=== PATIENT | male | born 1955 | race Caucasian/White ===

== ENCOUNTER → 2017-10-19 | Outpatient (CLI) | payer MEDICARE ==
[~2017-10-19] MED LIST: AMIT75TA2 PO; AMLO5TAB2 PO; AMOX-358 PO; ASCO500T20 PO; ASP81TEC PO; ASPI325T32 PO; AVOD0.5CAP PO; C250T PO; DEXL60CA5 PO; DIAZ5TAB3 PO; E400C PO; ENAL20TA PO; FINA5TAB6 PO; METF-380 PO; MULT-608 PO; NAPR-243 PO; NAPR550T PO; NEBI5TAB8 PO; NF-ESOM40C PO; NFNEB10T PO; NIAC400C2 PO; OMG1KC PO; ONDA8TAB9 PO; OXYC-12 PO; OXYC-197 PO; OXYC-309 PO; OXYC-471 PO; SCR1T1 PO; TAPE75TA PO; TIZA4TAB55 PO
--- NOTE | 2017-10-19 17:24 | Diagnostic Imaging Report ---
INDICATION: Persistent cough for four weeks. TIME OF EXAM: 05:29 p.m. Correlation is made with prior study from 08/26/2015. FINDINGS: The heart size is normal. Lungs do show some hyperinflation suggestive of COPD. No infiltrates are seen. There is no effusion or pneumothorax. There are postop changes in the lower cervical spine. IMPRESSION: COPD. No acute feature is detected. Dictated by: Dictated on workstation # [id number]
== END ==
LOC: RAD 17:01
PROVIDERS: ATTEND Family Medicine
DX: J44.9 Chronic obstructive pulmonary disease, unspecified (principal)
CPT/HCPCS: 71046

== ENCOUNTER → 2017-11-15 | Outpatient (CLI) | payer MEDICARE ==
[~2017-11-15] MED LIST changes: +CATHETER FLUSH 10 ML SYR IV PRN; +REGADENOSON 0.4 MG/5 ML SYR (LEXISCAN) IV ONE
[2017-11-15 09:39] VITALS: BP 146/66
--- NOTE | 2017-11-15 18:45 | STRESS TEST ---
DATE OF SERVICE: 11/15/2017 LEXISCAN MYOVIEW STRESS TEST REPORT REFERRING PHYSICIAN: Dr. Frazier. Baseline heart rate is 63. Baseline blood pressure 160/67. Baseline EKG is sinus rhythm with no ischemic changes. In summary, the patient was injected with 10.92 mCi of technetium-99 Myoview and the resting images were obtained. Then, the patient received 0.4 mg of Lexiscan followed by 31.0 mCi of technetium-99 Myoview and the stress images were acquired, the resting and stress images were reviewed and compared in the short axis, horizontal long axis, and vertical long axis views. Review of the images showed diaphragmatic attenuation with fixed defect at the mid to apical inferior wall. No significant reversibility was seen. SSS is 4. SDS 0. TID value 1.03. On the gated images, the left ventricle appeared to be normal size with normal contractility. Calculated ejection fraction 54%. CONCLUSION: 1. The patient tolerated Lexiscan well. 2. Diaphragmatic attenuation with typical male pattern. No significant ischemia or infarction on SPECT images. 3. Normal left ventricular size with normal contractility. Calculated ejection fraction 54%. Job ID: [id number] DocumentID: [id number] Dictated Date: 11/15/2017 16:22:06 Delicatessen Department Manager Date: 11/15/2017 18:44:38 Dictated By: EZEQUIEL CALDERA MD
== END ==
LOC: CARD 07:42
PROVIDERS: ATTEND Physician Assistant
DX: I25.10 Atherosclerotic heart disease of native coronary artery without angina pectoris (principal); I10 Essential (primary) hypertension; R07.9 Chest pain, unspecified; R06.00 Dyspnea, unspecified
CPT/HCPCS: 78452; 93017

== ENCOUNTER → 2017-11-17 | Outpatient (CLI) | payer MEDICARE ==
[~2017-11-17] MED LIST changes: -CATHETER FLUSH 10 ML SYR IV PRN; -REGADENOSON 0.4 MG/5 ML SYR (LEXISCAN) IV ONE; +RT-ALBUTEROL SULF 2.5 MG/3 ML PRE-MIX VIAL INH ONE; +RT-ALBUTEROL SULF 2.5 MG/3 ML PRE-MIX VIAL ONE
== END ==
LOC: RT 12:41
PROVIDERS: ATTEND Nurse Practitioner Family
DX: J44.9 Chronic obstructive pulmonary disease, unspecified (principal); R06.00 Dyspnea, unspecified; R05 Cough
CPT/HCPCS: 94060; 94726; 94729

== ENCOUNTER → 2017-11-25 | Outpatient (CLI) | payer MEDICARE ==
[~2017-11-25] MED LIST changes: -RT-ALBUTEROL SULF 2.5 MG/3 ML PRE-MIX VIAL INH ONE; -RT-ALBUTEROL SULF 2.5 MG/3 ML PRE-MIX VIAL ONE
== END ==
LOC: CARD 11:34
PROVIDERS: ATTEND Physician Assistant
DX: I25.10 Atherosclerotic heart disease of native coronary artery without angina pectoris (principal); R07.89 Other chest pain; R06.00 Dyspnea, unspecified; I10 Essential (primary) hypertension; I34.0 Nonrheumatic mitral (valve) insufficiency
CPT/HCPCS: 93306

== ENCOUNTER → 2018-01-26 | Outpatient (CLI) | payer MEDICARE ==
--- NOTE | 2018-01-26 17:41 | Diagnostic Imaging Report ---
INDICATION: Respiratory distress. PA and lateral chest. FINDINGS: Heart size and pulmonary vascularity are normal. Lungs are clear. There are no effusions or pneumothoraces. IMPRESSION: Negative chest. Dictated by: Dictated on workstation # [id number]
== END ==
LOC: RAD 15:52
PROVIDERS: ATTEND Nurse Practitioner Family
DX: J44.9 Chronic obstructive pulmonary disease, unspecified (principal)
CPT/HCPCS: 71046

== ENCOUNTER → 2018-03-23 | Outpatient (CLI) | payer MEDICARE | LOC: RAD 12:54 | PROVIDERS: ATTEND Family Medicine | DX: M54.41 Lumbago with sciatica, right side (principal); Z53.8 Procedure and treatment not carried out for other reasons ==

== ENCOUNTER 2020-02-12 05:48 | Outpatient (RCR) | payer MEDICARE ==
[~2020-02-12] VITALS: Ht 190 cm; Wt 121.0 kg
[~2020-02-12 05:48] MED LIST changes: +AMLO10TA7 PO; +ASCO500C15 PO; +ATOR10TA66 PO; +CBD OIL PO; +CHOL2000 PO; +ELDE1CAP PO; +HYDR25TA4 PO; +LOSA100T57 PO; +METF-399 PO; +METO100T12 PO; +MONT10TA26 PO; +MULT-1136 PO; +NAPR-1070 PO; +OMEG1000 PO; -OXYC-197 PO; +OXYC1TAB87 PO; +TIZA4CAP8 PO
== END 2020-02-12 15:14 | disposition home or self-care (01) ==
LOC: PREOP 05:48
PROVIDERS: ATTEND Surgery
DX: Z01.818 Encounter for other preprocedural examination (principal); Z11.59 Encounter for screening for other viral diseases
CPT/HCPCS: 87635

== ENCOUNTER 2020-02-16 09:03 | Day surgery (SDC) | payer MEDICARE ==
[~2020-02-16] VITALS: Ht 190 cm; Wt 121.0 kg
[2020-02-16] VITALS (14 sets, daily range): BP systolic 100–143; BP diastolic 55–77
[2020-02-16] MEDS ORDERED: NS IV 500 ML 500 ML ONE (09:13)
[2020-02-16] MEDS ORDERED: HURRICAINE EXT TUBE (BENZOCAINE) XX PRN (09:15)
[2020-02-16] MEDS ORDERED: LIDOCAINE JELLY 2% 6 ML SYRINGE MM PRN (09:15)
[2020-02-16] MEDS ORDERED: NS IV 500 ML 500 ML IV PRN (09:15)
[2020-02-16] MEDS ORDERED: fentaNYL INJECTION 100 MCG/2 ML AMP IVP ONE (09:15)
--- NOTE | 2020-02-16 09:16 | Conscious Sedation/ASA ---
Conscious Sedation Pre-Proced Time 09:15 ASA Score 2 For ASA 3 and 4: Consider anesthesia and medical clearance. Also, for patients with a history of failed moderate sedation consider anesthesia. Airway Lungs Heart ASA score ASA 1: a normal healthy patient ASA 2: a patient with a mild systemic disease (mid diabetes, controlled hypertension, obesity ASA 3: a patient with a severe systemic disease that limits activity (angina, COPD, prior Myocardial infarction) ASA 4: a patient with an incapacitating disease that is a constant threat to life (CHF, renal failure) ASA 5: a moribund patient not expected to survive 24 hrs. (ruptured aneurysm) ASA 6: a declared brain- patient whose organs are being harvested. For emergent operations, add the letter E after the classification Mallampati Classification Grade 2 Sedation Plan Analgesia, Amnesia, Plan communicated to team members, Discussed options with patient/fam, Discussed risks with patient/fam The patient is an appropriate candidate to undergo the planned procedure, sedation, and anesthesia. The patient immediately re-assessed prior to indication. YOVANY MONSALVE MD Feb 16, 2020 09:16
--- NOTE | 2020-02-16 09:17 | Progress Note-Pre Operative ---
Pre-Operative Progress Note H&P Reviewed The H&P was reviewed, patient examined and no changes noted. Date Seen by Provider: Feb 16, 2020 Time Seen by Provider: 09:15 Date H&P Reviewed: Feb 16, 2020 Time H&P Reviewed: 09:15 Pre-Operative Diagnosis: hx barretts, screening o YOVANY MONSALVE MD Feb 16, 2020 09:17
--- NOTE | 2020-02-16 09:19 | Discharge Inst-Surgical ---
D/C Lap Instructions-BELLO Follow Up Appt in 2 weeks Activity as tolerated High Fiber Diet 25g or more per day Avoid Alcohol, Caffeine, Spicy [place] and Acid foods. Drink 64 fluid oz or more of fluids per day. Symptoms to Report: Fever over 101 degree F, Nausea/Vomiting If any problems/questions: Contact your physician or go to Emergency Room YOVANY MONSALVE MD Feb 16, 2020 09:19
[2020-02-16] MEDS ORDERED: ACETAMINOPHEN 325 MG TABLET PO PRN (09:30)
[2020-02-16] MEDS ORDERED: ONDANSETRON 4 MG/2 ML (SDV) Z0FRAN IVP PRN (09:30)
[2020-02-16] MEDS ORDERED: morphine INJ 10 MG/ML 1ML (SYR OR VIAL) IVP PRN ×2 (09:30)
[2020-02-16] MEDS ORDERED: fentaNYL INJECTION 100 MCG/2 ML AMP ONE ×2 (10:01→10:02)
[2020-02-16] MEDS ORDERED: MIDAZOLAM 5 MG/5 ML (VERSED) VIAL ONE ×2 (10:01)
[2020-02-16] MEDS ORDERED: LIDOCAINE JELLY 2% 6 ML SYRINGE ONE (10:01)
[2020-02-16] MEDS ORDERED: HURRICAINE EXT TUBE (BENZOCAINE) ONE (10:02)
[2020-02-16] MEDS: MIDAZOLAM 5 MG/5 ML (VERSED) VIAL IV PRN ×4 (10:12→10:29)
--- NOTE | 2020-02-16 10:53 | Progress Note-Post Operative ---
Post-Operative Progess Note Surgeon (s)/Air Quality Technician (s) Surgeon YOVANY MONSALVE MD Air Quality Technician: none Pre-Operative Diagnosis hx barretts, screening colo Post-Operative Diagnosis reflux esophagitis(stage 2), small HH(1cm), moderate gastritis. chronic stage 2 ext and int hemorrhoids, HP rectum(2mm). Procedure & Operative Findings Date of Procedure 02/16/20 Procedure Performed/Findings EGD with bx. Colonoscopy. Anesthesia Type cs Estimated Blood Loss Estimated blood loss (mL): minimal Specimens/Packing Specimens Removed ge jxn, antrum, rectal polyp YOVANY MONSALVE MD Feb 16, 2020 10:53
--- NOTE | 2020-02-16 15:06 | OPERATIVE REPORT ---
DATE OF SERVICE: 02/16/2020 ATTENDING PRIMARY CARE PHYSICIAN: Dr. Graeme Wynn. PREOPERATIVE DIAGNOSIS: History of Cee's esophagus, screening colonoscopy. POSTOPERATIVE DIAGNOSES: Reflux esophagitis stage II, small hiatal hernia 1 to 1.5 cm in size, moderate gastritis, chronic stage II external and internal hemorrhoids, small hyperplastic polyp of the rectum, 2 mm in size. Remainder of the colon and rectum were normal. PROCEDURES PERFORMED: EGD with biopsy, colonoscopy with biopsy. SURGEON: Yovany Patiño MD. ANESTHESIA: Conscious sedation. ESTIMATED BLOOD LOSS: Minimal. FINDINGS: Same as postoperative diagnoses. DISPOSITION: The patient tolerated the procedure well. INDICATIONS FOR PROCEDURE: The patient is a 64-year-old male referred over to us for EGD and colonoscopy. He reports that he has had issues with gastroesophageal reflux disease as well as biopsy proven Cee's esophagus in the past. He states that he is otherwise doing okay for the most part and does have occasional episodes of heartburn and reflux; however, he is currently on Nexium, which seems to help. He is also in need of a screening colonoscopy. He does not report any red blood per rectum nor any dark tarry stools, also does not report any family history of colon cancer. DESCRIPTION OF PROCEDURE: The patient was brought to the endoscopy suite and laid in left lateral decubitus position with head slightly elevated. After adequate IV pain and sedative medications and conscious sedation anesthesia, the mouthpiece was applied. The endoscope was placed in the mouth, visualizing the pharynx and hypopharyngeal region. Vocal cords, epiglottis and vallecula were identified and appeared to be normal. The endoscope was then gently intubated and the esophageal opening and esophagus insufflated. The endoscope was then advanced through the first, second and third portion of the esophagus. At the level of the GE junction, a reflux esophagitis stage II identified. There were no ulcers or strictures identified in this region. Biopsies were taken using forceps with visualization of a good hemostasis. The endoscope was then advanced into the stomach and endoscope retroflexed, visualizing a small hiatal hernia 1 to 1.5 cm in size. There was a moderate severity gastritis more towards the antrum. No formal ulcerations, polyps or any neoplasms and a biopsy was taken to rule out H. pylori with visualization of good hemostasis. The endoscope was then advanced to the pylorus and the first and second portion of the duodenum, which appeared normal with no distal obstructions. The endoscope was then slowly withdrawn while taking a second look and suctioning of residual air with no additional findings. Under the same anesthesia, we then proceeded with the colonoscopy portion of the procedure. Digital rectal examination was performed, which revealed chronic stage II external and internal hemorrhoids, not actively edematous nor inflamed and no bleeding. Normal sphincter tone was felt and there were no palpable masses. Prostate gland was palpable and appeared normal. The endoscope was then intubated and anus and rectum gently insufflated. The endoscope was then advanced to the valves of Torres of rectum with a small hyperplastic polyp of the rectum was identified approximately 2 mm in size. This was biopsied and destroyed using forceps and electrocautery with visualization of a good hemostasis. The endoscope was then advanced through the sigmoid colon where no diverticulosis was identified. The endoscope was then advanced to the remainder of the descending, transverse and ascending colon to the cecum. These segments were normal. There were no other polyps or any neoplasms identified. The endoscope was then slowly withdrawn while taking a second look and suctioning of residual air with no additional findings. The patient tolerated the procedure well. We will await the biopsy results of the gastroesophageal junction; however, we will recommend continued medical management with the necessary lifestyle and diet accommodation including continuation of his PPI acid soubrette as well as taking in small and more frequent meals, avoidance of eating at night as well as head elevation while lying supine. Also avoidance of caffeinated beverages, spicy, greasy and acidic foods. We will also recommend a high fiber diet with a dietary supplement to encompass 30 grams daily as well as significant amounts of water to promote soft stools on a daily basis. He does not need another colonoscopy for another 10 years if he is asymptomatic. Job ID: [id number] DocumentID: [id number] Dictated Date: 02/16/2020 10:49:30 Environmental Health Officer Date: 02/16/2020 15:05:05 Dictated By: YOVANY PATIÑO MD
== END 2020-02-16 11:30 | disposition home or self-care (01) ==
LOC: ENDO 09:03
PROVIDERS: ATTEND Surgery
DX: Z12.11 Encounter for screening for malignant neoplasm of colon (principal); D12.8 Benign neoplasm of rectum; K21.0 Gastro-esophageal reflux disease with esophagitis; K44.9 Diaphragmatic hernia without obstruction or gangrene; K29.50 Unspecified chronic gastritis without bleeding; K64.1 Second degree hemorrhoids; E11.9 Type 2 diabetes mellitus without complications; I10 Essential (primary) hypertension; E78.00 Pure hypercholesterolemia, unspecified; M19.91 Primary osteoarthritis, unspecified site; Z79.84 Long term (current) use of oral hypoglycemic drugs; Z79.899 Other long term (current) drug therapy; Z88.5 Allergy status to narcotic agent; Z87.891 Personal history of nicotine dependence; Z87.19 Personal history of other diseases of the digestive system
CPT/HCPCS: 82962; 88305

== ENCOUNTER → 2020-11-01 | Outpatient (CLI) | payer MEDICARE ==
[~2020-11-01] MED LIST changes: +AMLO-251 PO; -AMLO10TA7 PO; -ASCO500C15 PO; +ASCO500C18 PO; -CHOL2000 PO; +CHOL200074 PO; -MONT10TA26 PO; +MONT10TA32 PO; -OXYC-471 PO; +OXYC1TAB11 PO
== END ==
LOC: CARD 10:25
PROVIDERS: ATTEND Internal Medicine Cardiovascular Disease
DX: I11.9 Hypertensive heart disease without heart failure (principal); I08.0 Rheumatic disorders of both mitral and aortic valves
CPT/HCPCS: 93306

== ENCOUNTER → 2020-11-04 | Outpatient (CLI) | payer MEDICARE ==
[~2020-11-04] VITALS: Ht 190 cm; Wt 118.0 kg
[~2020-11-04] MED LIST changes: +CATHETER FLUSH 10 ML SYR IV PRN; +REGADENOSON 0.4 MG/5 ML SYR (LEXISCAN) IV ONE
[2020-11-04 09:14] VITALS: BP 137/74
--- NOTE | 2020-11-04 12:03 | Cardiology Stress Test Report ---
Stress Test Report Date of Procedure/Referring: Date of Procedure: Nov 04, 2020 PCP Ezequiel Trejo MD Admitting Physician Graeme Wynn MD Indications: Hypertension Baseline Heart Rate: 69 Baseline Blood Pressure: Blood Pressure Systolic: 137 Blood Pressure Diastolic: 74 Baseline Vitals Vital Signs Date Time Temp Pulse Resp B/P (MAP) Pulse Ox O2 Delivery O2 Flow Rate FiO2 11/04/20 09:14 78 18 137/74 (95) 98 Room Air Baseline EKG: Baseline EKG: normal sinus rhythm, right bundle branch block Summary After explaining the procedure to the patient, he signed a consent and then brought to the stress nuclear laboratory. Patient received 0.4 mg Lexiscan for stress test, ECG, heart rate and blood pressure were monitored continuously. Resting and stress dose of radio tracer were injected, imaging was acquired and reviewed in short axis, horizontal long axis and vertical long axis views. TID: 1.19 SSS: 7 SDS: 6 EF: 57 1. Patient tolerated Lexiscan well 2. Diaphragmatic attenuation with decreased uptake involving the mid to apical inferior septum with mild reversibility, probably due to diaphragmatic attenuation 3. Normal left ventricular size, EF 57 percent EZEQUIEL TREJO MD Nov 04, 2020 12:03
== END ==
LOC: CARD 08:15
PROVIDERS: ATTEND Internal Medicine Cardiovascular Disease
DX: I10 Essential (primary) hypertension (principal); R07.9 Chest pain, unspecified
CPT/HCPCS: 78452; 93017; A9502

== ENCOUNTER 2021-06-05 11:42 | Outpatient (CLI) | payer MEDICARE, OTHER ==
[~2021-06-05] VITALS: Ht 193 cm; Wt 124.5 kg
[~2021-06-05 11:42] MED LIST changes: -CATHETER FLUSH 10 ML SYR IV PRN; -REGADENOSON 0.4 MG/5 ML SYR (LEXISCAN) IV ONE
[2021-06-05 11:53] VITALS: BP 141/68
[2021-06-05] MEDS ORDERED: BACL10TA PO (11:55)
[2021-06-05 12:33] LABS: POTASSIUM 4.1 MMOL/L (3.6-5.0)
[2021-06-05 12:35] LABS: CALCIUM 9.5 MG/DL (8.5-10.1)
[2021-06-05 12:36] LABS: BASOPHILS % (AUTO) 1 % (0-10); EOSINOPHILS # (AUTO) 0.3 10^3/uL (0.0-0.3); EOSINOPHILS % (AUTO) 5 % (0-10); HEMATOCRIT 42 % (40-54); HEMOGLOBIN 14.7 g/dL (13.3-17.7); LYMPHOCYTES # (AUTO) 1.8 10^3/uL (1.0-4.0); LYMPHOCYTES % (AUTO) 29 % (12-44); MEAN CORPUSCULAR HEMOGLOBIN 30 pg (25-34); MEAN CORPUSCULAR HGB CONC 35 g/dL (32-36); MEAN CORPUSCULAR VOLUME 87 fL (80-99); MEAN PLATELET VOLUME 10.5 fL (9.0-12.2); MONOCYTES # (AUTO) 0.6 10^3/uL (0.0-1.0); MONOCYTES % (AUTO) 9 % (0-12); NEUTROPHILS # (AUTO) 3.6 10^3/uL (1.8-7.8); NEUTROPHILS % (AUTO) 57 % (42-75); PLATELET COUNT 231 10^3/uL (130-400); WHITE BLOOD COUNT 6.3 10^3/uL (4.3-11.0)
[2021-06-05 12:39] LABS: CREATININE SERUM 0.81 MG/DL (0.60-1.30)
== END 2021-06-05 12:56 | disposition home or self-care (01) ==
LOC: PREOP 11:42
PROVIDERS: ATTEND Otolaryngology Otolaryngology/Facial Plastic Surgery
DX: C44.229 Squamous cell carcinoma of skin of left ear and external auricular canal (principal); L98.9 Disorder of the skin and subcutaneous tissue, unspecified
CPT/HCPCS: 36415; 80048; 85025; 87081; 93005

== ENCOUNTER 2021-06-13 06:50 | Day surgery (SDC) | payer MEDICARE, OTHER ==
[~2021-06-13] VITALS: Ht 193 cm; Wt 124.5 kg
[2021-06-13] VITALS (10 sets, daily range): BP systolic 124–162; BP diastolic 68–83
[~2021-06-13 06:50] MED LIST changes: +BACL10TA PO
[2021-06-13] MEDS ORDERED: LACTATED RINGERS 1,000 ML IV PRN (07:00)
[2021-06-13] MEDS ORDERED: fentaNYL INJ 100 MCG/2 ML AMP ONE (07:22)
[2021-06-13] MEDS ORDERED: proPOfol 200 MG/20 ML (DIPRIVAN) VIAL IV ONE (07:22)
[2021-06-13] MEDS ORDERED: ROCURONIUM 10 MG/ML 5 ML SYRINGE IV ONE (07:22)
[2021-06-13] MEDS ORDERED: LIDOCAINE PF 2% 5 ML (XYLOCAINE) VIAL ONE (07:22)
[2021-06-13] MEDS ORDERED: MIDAZOLAM 2 MG/2 ML (VERSED) VIAL ONE (07:23)
[2021-06-13] MEDS ORDERED: ONDANSETRON 4 MG/2 ML (SDV) Z0FRAN ONE (07:28)
[2021-06-13] MEDS ORDERED: FAMOTIDINE 20MG/2ML IV (PEPCID) ONE (07:28)
[2021-06-13] MEDS ORDERED: ONDANSETRON 4 MG/2 ML (SDV) Z0FRAN IVP ONE (07:30)
[2021-06-13] MEDS ORDERED: FAMOTIDINE 20MG/2ML IV (PEPCID) IVP ONE (07:30)
[2021-06-13] MEDS ORDERED: MUPIROCIN 2% OINT 22 GM (BACTROBAN) TUBE ONE (07:30)
[2021-06-13] MEDS ORDERED: BSS 15 ML ONE (07:30)
[2021-06-13] MEDS ORDERED: LIDOCAINE/EPI 1%-1:100,000 (XYLOCAINE) 20ML ONE (07:31)
--- NOTE | 2021-06-13 08:01 | Progress Note-Pre Operative ---
Pre-Operative Progress Note H&P Reviewed The H&P was reviewed, patient examined and no changes noted. Date Seen by Provider: Jun 13, 2021 Time Seen by Provider: 08:00 Date H&P Reviewed: Jun 13, 2021 Time H&P Reviewed: 08:00 Pre-Operative Diagnosis: Left ear lesion, left cheek lesion, left upper arm lesion VALENTINA BENITEZ MD Jun 13, 2021 08:01
--- NOTE | 2021-06-13 08:37 | Progress Note-Post Operative ---
Post-Operative Progess Note Surgeon (s)/Visual Associate (s) Surgeon VALENTINA BENITEZ MD Visual Associate n/a Pre-Operative Diagnosis Left ear lesion, left cheek lesion, left upper arm lesion Post-Operative Diagnosis same Post-Op Procedure Note Date of Procedure: Jun 13, 2021 Name of Procedure Performed: Wedge REsection of LEFT Superior Ear, Inferior Advancement Flap for Reconstruction, Excision of Left EAr Lesion with Intermediate Repair, Excision of Left Arm Lesion with Simple Repair Description & Findings Description and Findings: n/a Anesthesia Type lma Estimated Blood Loss minimal Packing none. Specimen(s) collected/removed left ear left cheek and left arm for frozen sections VALENTINA BENITEZ MD Jun 13, 2021 08:37
[2021-06-13] MEDS ORDERED: SEVOFLURANE (ULTANE) 15 ML INHAL SOLN ONE (08:38)
[2021-06-13] MEDS ORDERED: ACETAMINOPHEN 325 MG TABLET PO PRN (08:45)
[2021-06-13] MEDS ORDERED: CEPH500T PO (09:10)
[2021-06-13] MEDS ORDERED: TRM50T PO (09:10)
[2021-06-13] MEDS ORDERED: HYDROmorphone 2 MG/ML VIAL (DILAUDID) IV ONE (09:15)
[2021-06-13] MEDS ORDERED: ONDANSETRON 4 MG/2 ML (SDV) Z0FRAN IVP PRN (09:15)
--- NOTE | 2021-06-13 13:59 | Anesthesia-General Post-Op ---
General Patient Condition Mental Status/LOC: Same as Preop Cardiovascular: Satisfactory Nausea/Vomiting: Absent Respiratory: Satisfactory Pain: Controlled Complications: Absent Post Op Complications Complications None Follow Up Care/Instructions Patient Instructions None needed. Anesthesia/Patient Condition Patient Condition Patient is doing well, no complaints, stable vital signs, no apparent adverse anesthesia problems. No complications reported per nursing. D/C home per [facility] Criteria: Yes MAMADOU LIZAMA CRNA Jun 13, 2021 13:59
== END 2021-06-13 11:00 ==
LOC: SDC 06:50
PROVIDERS: ATTEND Otolaryngology Otolaryngology/Facial Plastic Surgery
DX: L57.0 Actinic keratosis (principal); L81.4 Other melanin hyperpigmentation; L82.1 Other seborrheic keratosis; D04.62 Carcinoma in situ of skin of left upper limb, including shoulder; I10 Essential (primary) hypertension; I25.10 Atherosclerotic heart disease of native coronary artery without angina pectoris; G47.33 Obstructive sleep apnea (adult) (pediatric); J44.9 Chronic obstructive pulmonary disease, unspecified; Z87.891 Personal history of nicotine dependence; E11.40 Type 2 diabetes mellitus with diabetic neuropathy, unspecified; E66.9 Obesity, unspecified; K21.9 Gastro-esophageal reflux disease without esophagitis; Z68.33 Body mass index [BMI] 33.0-33.9, adult; Z79.899 Other long term (current) drug therapy; Z79.84 Long term (current) use of oral hypoglycemic drugs; E78.5 Hyperlipidemia, unspecified; K22.70 Barrett's esophagus without dysplasia; N52.9 Male erectile dysfunction, unspecified; I65.23 Occlusion and stenosis of bilateral carotid arteries
CPT/HCPCS: 87081

== ENCOUNTER → 2021-12-16 | Outpatient (CLI) | payer MEDICARE, OTHER ==
[~2021-12-16] MED LIST changes: +CEPH500T PO; +MONT-40 PO; -MONT10TA32 PO; +TRM50T PO
--- NOTE | 2021-12-16 18:16 | Diagnostic Imaging Report ---
CLINICAL INDICATION: Patient with enlarged thyroid. EXAM: Ultrasound of the thyroid gland. COMPARISONS: None. FINDINGS: THYROID NODULES: There is a 5 mm anechoic cyst with focal eccentric echogenic area involving the upper aspect of the right thyroid lobe. There is a 7 mm hypoechoic area involving the mid portion of the right thyroid lobe. There is an echogenic area posteriorly within this area with subtle posterior shadowing and may represent calcification. This nodule is ill-defined and wider than it is tall. There is a 7 mm anechoic cyst with focal eccentric echogenic area involving the inferior portion of the right thyroid lobe. THYROID GLAND: Besides the thyroid nodules, the thyroid gland has normal size, shape and echogenicity. The right lobe measures 5.4 cm x 2.1 cm x 2.0 cm and the left lobe measures 4.2 cm x 1.7 cm x 1.9 cm in their three dimensions. ISTHMUS: The isthmus is unremarkable and measures 4 mm in thickness. 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 2: There is a hypoechoic area with posterior hyperechoic area involving the mid portion of the right thyroid lobe with posterior shadowing. Suspected microcalcification associated with this area. TI-RADS 2. Dictated by: Dictated on workstation # [id number]
== END ==
LOC: RAD 14:15
PROVIDERS: ATTEND Internal Medicine
DX: E04.2 Nontoxic multinodular goiter (principal)
CPT/HCPCS: 76536

== ENCOUNTER → 2022-01-21 | Outpatient (CLI) | payer MEDICARE, OTHER ==
[~2022-01-21] VITALS: Ht 190 cm; Wt 122.0 kg
[~2022-01-21] MED LIST changes: +CATHETER FLUSH 10 ML SYR IVP PRN; +REGADENOSON 0.4 MG/5 ML SYR (LEXISCAN) IV ONE
[2022-01-21 09:39] VITALS: BP 197/91
--- NOTE | 2022-01-21 13:26 | Cardiology Stress Test Report ---
Stress Test Report Date of Procedure/Referring: Date of Procedure: January 21, 2022 PCP Calin Nieto MD Admitting Physician Admitting Physician: Attending Physician: Casimiro Trejo MD Indications: CAD Baseline Heart Rate: 87 Baseline Blood Pressure: Blood Pressure Systolic: 197 Blood Pressure Diastolic: 91 Baseline Vitals Vital Signs Date Time Temp Pulse Resp B/P (MAP) Pulse Ox O2 Delivery O2 Flow Rate FiO2 01/21/22 09:39 93 17 197/91 (126) 99 Room Air Baseline EKG: Baseline EKG: RBBB Summary After explaining the procedure to the patient, he signed a consent and then brought to the stress nuclear laboratory. Patient received 0.4 mg Lexiscan for stress test, ECG, heart rate and blood pressure were monitored continuously. Resting and stress dose of radio tracer were injected, imaging was acquired and reviewed in short axis, horizontal long axis and vertical long axis views. TID: 0.9 SSS: 1 SDS: 1 EF: 51 1. Patient tolerated Lexiscan well 2. Baseline right bundle branch block persisted during test 3. Diaphragmatic attenuation with mild decrease uptake at the mid to apical inferior wall, there is no significant ischemia or infarction on SPECT images 4. Normal left ventricular size, ejection fraction 56% Copy Copies To 1: CALIN NIETO MD, BASHAR J MD January 21, 2022 13:26
== END ==
LOC: CARD 08:45
PROVIDERS: ATTEND Internal Medicine Cardiovascular Disease
DX: I25.10 Atherosclerotic heart disease of native coronary artery without angina pectoris (principal)
CPT/HCPCS: 78452; 93017; A9502

== ENCOUNTER 2022-05-11 11:27 | Outpatient (CLI) | payer MEDICARE, OTHER ==
[~2022-05-11] VITALS: Ht 190.5 cm; Wt 120.5 kg
[~2022-05-11 11:27] MED LIST changes: -CATHETER FLUSH 10 ML SYR IVP PRN; -REGADENOSON 0.4 MG/5 ML SYR (LEXISCAN) IV ONE
[2022-05-11 11:36] VITALS: BP 130/71
[2022-05-11 11:44] VITALS: BP 130/71
[2022-05-11] MEDS ORDERED: ONDANSETRON 4 MG/2 ML (SDV) Z0FRAN IV PRN (11:45)
[2022-05-11] MEDS ORDERED: ACETAMINOPHEN 500 MG TAB (TYLENOL) PO PRN (11:45)
[2022-05-11] MEDS ORDERED: BEBTELOVIMAB 175 MG/2 ML VIAL IV ONE (11:45)
[2022-05-11] MEDS ORDERED: EPINEPHrine INJECTION 1 MG/ML AMP IM PRN (11:45)
[2022-05-11] MEDS ORDERED: diphenhydrAMINE 50 MG/ML INJ (BENADRYL) IV PRN (11:45)
== END 2022-05-11 12:55 | disposition home or self-care (01) ==
LOC: INFUSION 11:27
PROVIDERS: ATTEND Internal Medicine
DX: U07.1 COVID-19 (principal)

== ENCOUNTER → 2023-04-05 | Outpatient (CLI) | payer MEDICARE, OTHER ==
[~2023-04-05] MED LIST changes: -LOSA100T57 PO; +LOSA100T58 PO
--- NOTE | 2023-04-05 14:15 | Diagnostic Imaging Report ---
INDICATION: PAIN COMPARISON: None. FINDINGS: 3 views of the right ankle were obtained. There is no acute fracture or dislocation. No focal osseous lesions are seen. The surrounding soft tissue structures are unremarkable. There are no radiopaque foreign bodies. IMPRESSION: 1. No acute fracture or dislocation in the right ankle. Dictated by: Dictated on workstation # [id number]
--- NOTE | 2023-04-05 15:43 | Diagnostic Imaging Report ---
Indication: Right leg pain AP and lateral views of the right tibia and fibula are obtained. No fracture or acute bony abnormality seen. Impression: Negative right tibia and fibula. Dictated by: Dictated on workstation # [id number]
== END ==
LOC: RAD 09:45
PROVIDERS: ATTEND Internal Medicine
DX: M25.561 Pain in right knee (principal); M79.604 Pain in right leg; M25.571 Pain in right ankle and joints of right foot
CPT/HCPCS: 73590; 73610

== ENCOUNTER 2023-04-24 17:00 | Emergency (ER) | payer MEDICARE, OTHER ==
[~2023-04-24] VITALS: Ht 193 cm; Wt 120.3 kg
[2023-04-24] MEDS ORDERED: BACI28.4 TP (17:16)
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
[2023-04-24 17:27] VITALS: BP 163/92
== END 2023-04-24 17:27 | disposition home or self-care (01) ==
LOC: EDUNIT# 17:00 → ER 17:03
DX: T21.22XA Burn of second degree of abdominal wall, initial encounter (principal); T31.0 Burns involving less than 10% of body surface; G47.30 Sleep apnea, unspecified; Z99.89 Dependence on other enabling machines and devices; Z90.49 Acquired absence of other specified parts of digestive tract; X12.XXXA Contact with other hot fluids, initial encounter; Y93.E9 Activity, other interior property and clothing maintenance